=== PATIENT | male | born 1985 | race Two or more races ===

== ENCOUNTER 2024-08-07 22:38 | Emergency (ER) | payer OTHER ==
[~2024-08-07] VITALS: Ht 177.8 cm; Wt 93.0 kg
[2024-08-07] MEDS ORDERED: GLUMETZA500 MG (22:48)
[2024-08-07] MEDS ORDERED: ENALAPRIL MALEA10 MG (22:51)
[2024-08-07] MEDS ORDERED: KETOROLAC TROMETHAMINE 60 MG VIAL IM ONE (23:00)
[2024-08-07 23:49] LABS: HEMATOCRIT 38.7 % (39.0-48.0); MEAN CORPUSCULAR HEMOGLOBIN 31.4 pg (27.00-32.0); MEAN CORPUSCULAR HGB CONC 33.7 g/dl (32.0-36.0); PLATELET COUNT 221 K/uL (150-450); RED BLOOD COUNT 4.16 M/uL (4.00-6.00); RED CELL DISTRIBUTION WIDTH 14.1 % (11.5-14.5)
== END 2024-08-08 00:36 | disposition home or self-care (01) ==
LOC: ER 22:40
PROVIDERS: General Practice
DX: R07.89 Other chest pain (principal); E11.9 Type 2 diabetes mellitus without complications; Z79.84 Long term (current) use of oral hypoglycemic drugs; I10 Essential (primary) hypertension